=== PATIENT | female | born 1975 | race Caucasian/White ===

== ENCOUNTER 2021-07-16 17:38 | Emergency (ER) | payer MEDICAID ==
[~2021-07-16] VITALS: Ht 165.1 cm; Wt 55.8 kg
[2021-07-16] MEDS ORDERED: ADDERALL 20 MG20 MG PO (17:50)
[2021-07-16] MEDS ORDERED: HYDROCODON-ACE1 EAC7 PO (17:50)
[2021-07-16] MEDS ORDERED: ZOFRAN4 MG PO (17:50)
[2021-07-16] MEDS ORDERED: DRIZALMA SPRINK30 MG PO (17:51)
[2021-07-16] MEDS ORDERED: LEVOXYL150 MCG PO (17:51)
[2021-07-16] MEDS ORDERED: REGLAN 5 MG TAB5 MG PO (17:51)
[2021-07-16] MEDS ORDERED: ALPRAZOLAM XR3 MG (17:51)
[2021-07-16 18:15] LABS: URINE BILIRUBIN NEGATIVE (Negative); URINE BLOOD 1+ (Negative); URINE CLARITY CLEAR; URINE COLOR YELLOW; URINE GLUCOSE-RANDOM NEGATIVE (Negative); URINE KETONES NEGATIVE (Negative); URINE LEUKOCYTES NEGATIVE (Negative); URINE NITRITE NEGATIVE (Negative); URINE PROTEIN NEGATIVE (Negative); URINE SPECIFIC GRAVITY 1.025 (1.005-1.030); URINE UROBILINOGEN 0.2 E.U./dl (0.2-1.0)
[2021-07-16 18:31] LABS: SQUAMOUS 0-3 Few /LPF (0-3)
[2021-07-16 18:32] LABS: BACTERIA 1-9 Few /HPF (None Seen); CASTS None Seen /LPF (None Seen); CRYSTALS None Seen /LPF (None Seen); URINE RBC 3-10 Few /HPF (0-2); URINE WBC 0-5 Rare /HPF (0-5)
[2021-07-16 18:53] LABS: ABSOLUTE BASOPHILS 0.1 thou/uL (0.0-0.2); ABSOLUTE EOSINOPHILS 0.2 thou/uL (0.0-0.7); ABSOLUTE LYMPHOCYTES 2.9 thou/uL (0.8-5.3); ABSOLUTE MONOCYTES 0.6 thou/uL (0.0-1.2); ABSOLUTE NEUTROPHILS 4.7 thou/uL (1.6-8.1); BASOPHILS 0.8 %; EOSINOPHILS 2.1 %; HEMATOCRIT 34.6 % (37.0-47.0); HEMOGLOBIN 11.7 gm/dL (12.0-15.0); LYMPHOCYTES 34.4 %; MCH 29.6 pg (26.0-34.0); MCHC 33.9 g/dL (28.0-37.0); MCV 87.4 fL (80.0-100.0); MONOCYTES 6.7 %; MPV 7.3 fl. (7.2-11.1); NUCLEATED RBCS 0 /100WBC; PLATELET COUNT* 472 thou/uL (150-400); RBC 3.96 mil/uL (4.20-5.00); RDW-CV 12.9 % (10.5-14.5); WBC 8.4 thou/uL (4.0-11.0)
[2021-07-16 19:00] LABS: CALCIUM 9.1 mg/dL (8.5-10.1); CREATININE 0.9 mg/dL (0.6-1.3); POTASSIUM 3.5 mmol/L (3.5-5.1)
[2021-07-16 19:05] LABS: ALBUMIN 3.8 g/dL (3.4-5.0); TOTAL BILIRUBIN 0.1 mg/dL (<0.1-1.0); TOTAL PROTEIN 7.3 g/dL (6.4-8.2)
[2021-07-16] MEDS ORDERED: TRAMADOL 50 MG50 MG PO (20:21)
[2021-07-16 20:28] VITALS: BP 171/106
== END 2021-07-16 20:31 | disposition home or self-care (01) ==
LOC: M.ERS 17:38
PROVIDERS: Physician Assistant
DX: R10.12 Left upper quadrant pain (principal); Z90.89 Acquired absence of other organs; Z79.899 Other long term (current) drug therapy

== ENCOUNTER 2021-07-25 14:51 | Emergency (ER) | payer MEDICAID ==
[~2021-07-25] VITALS: Ht 165.1 cm; Wt 57.1 kg
[~2021-07-25 14:51] MED LIST: ADDERALL 20 MG20 MG PO; ALPRAZOLAM XR3 MG; DRIZALMA SPRINK30 MG PO; HYDROCODON-ACE1 EAC7 PO; LEVOXYL150 MCG PO; REGLAN 5 MG TAB5 MG PO; TRAMADOL 50 MG50 MG PO; ZOFRAN4 MG PO
[2021-07-25] MEDS ORDERED: ASPERCREME1 EACH TOP (15:01)
[2021-07-25] MEDS ORDERED: LISINOPRIL20 MG PO (15:02)
[2021-07-25 15:05] VITALS: BP 147/96
[2021-07-25 15:28] LABS: ABSOLUTE BASOPHILS 0.1 thou/uL (0.0-0.2); ABSOLUTE EOSINOPHILS 0.2 thou/uL (0.0-0.7); ABSOLUTE LYMPHOCYTES 2.8 thou/uL (0.8-5.3); ABSOLUTE MONOCYTES 0.7 thou/uL (0.0-1.2); ABSOLUTE NEUTROPHILS 5.2 thou/uL (1.6-8.1); BASOPHILS 1.1 %; EOSINOPHILS 1.8 %; HEMATOCRIT 37.4 % (37.0-47.0); HEMOGLOBIN 12.7 gm/dL (12.0-15.0); LYMPHOCYTES 30.9 %; MCH 29.5 pg (26.0-34.0); MCHC 33.9 g/dL (28.0-37.0); MCV 86.9 fL (80.0-100.0); MONOCYTES 7.4 %; MPV 6.9 fl. (7.2-11.1); NUCLEATED RBCS 0 /100WBC; PLATELET COUNT* 533 thou/uL (150-400); POLYS 58.8 %; RDW-CV 13.5 % (10.5-14.5); WBC 8.9 thou/uL (4.0-11.0)
[2021-07-25 15:35] LABS: CREATININE 0.8 mg/dL (0.6-1.3); POTASSIUM 4.1 mmol/L (3.5-5.1)
[2021-07-25 15:40] LABS: TOTAL BILIRUBIN 0.1 mg/dL (<0.1-1.0); TOTAL PROTEIN 7.6 g/dL (6.4-8.2)
--- NOTE | 2021-07-26 08:11 | EKG ---
[place] [address] ELECTROCARDIOGRAM REPORT Name: JOSEPH SALCEDO Room: [facility]#: [id number] Admission: 07/25/21 Attend Phys: Discharge: 07/25/21 Date of : 71 Date of Service: 07/25/21 1502 Report #: [id number] THIS REPORT FOR: //name// [facility] ED Test Date: 2021-07-25 Test Time: 15:02:04 Pat Name: JOSEPH SALCEDO Department: Room: Gender: Crew Leader: [facility] : 1975 Requested By: Isauro Carbajal Order Number: [id number] MD: Toni Magaña Measurements Intervals [place] Rate: 98 P: 70 [place]: 131 QRS: 84 QRSD: 92 T: 41 QT: 353 QTc: 451 Interpretive Statements Sinus rhythm Baseline wander in lead(s) V3,V4,V5,V6 No previous ECG available for comparison Electronically Signed On 07-26-2021 8:10:47 CDT by Toni Magaña [email or web address] <ELECTRONICALLY SIGNED> By: Toni Magaña MD, FAC 07/26/21 0810 1502 1502 Toin Magaña MD, [facility] /EPI
== END 2021-07-25 16:30 | disposition left against medical advice (07) ==
LOC: M.ERS 14:51
PROVIDERS: Emergency Medicine
DX: R07.89 Other chest pain (principal); Z20.822 Contact with and (suspected) exposure to COVID-19; R46.89 Other symptoms and signs involving appearance and behavior; R10.32 Left lower quadrant pain; I10 Essential (primary) hypertension; Z90.89 Acquired absence of other organs; Z79.899 Other long term (current) drug therapy